=== PATIENT | male | born 1955 | race Caucasian/White ===

== ENCOUNTER 2023-04-10 05:13 | Day surgery (SDC) | payer OTHER, BC ==
[2023-04-08 14:52] VITALS: BMI 25.4
[2023-04-10 10:39] VITALS: TEMP 94
[2023-04-10 11:15] VITALS: BP 117/77; PULSE 55; RESP 12
== END 2023-04-10 11:21 | disposition home or self-care (01) ==
LOC: JASU-ENDO 05:13
PROVIDERS: ATTEND Internal Medicine Gastroenterology
PROC: 0DBN8ZX Excision of Sigmoid Colon, Via Natural or Artificial Opening Endoscopic, Diagnostic (ICD-10-PCS; principal; 2023-04-10 10:30)
DX: Z12.11 Encounter for screening for malignant neoplasm of colon (principal); D12.5 Benign neoplasm of sigmoid colon; K57.30 Diverticulosis of large intestine without perforation or abscess without bleeding; K64.8 Other hemorrhoids; I10 Essential (primary) hypertension

== ENCOUNTER 2023-12-04 08:12 | Day surgery (SDC) | payer OTHER, BC ==
[2023-12-02 12:51] VITALS: BMI 25.8
[2023-12-04] MEDS: TROPICAMIDE 1% OPHTH SOLN 15 ML BOTTLE ONE (08:40)
[2023-12-04] MEDS: CYCLOPENTOLATE 2% OPHTH SOLN 2 ML BOTTLE ONE (08:40)
[2023-12-04] MEDS: CIPROFLOXACIN 0.3% EYE DROPS 5 ML BOTTLE ONE (08:40)
[2023-12-04] MEDS: PHENYLEPHRINE 2.5% OPTHALMIC DROP 2ML BOTTLE ONE (08:40)
[2023-12-04] MEDS ORDERED: BSS (NA/CA/MG/K) BALANCED SALT SOLUTION OPHTH SOLN 15 ML BOTTLE ONE (08:44)
[2023-12-04] MEDS ORDERED: NEO/POLYMYX B SULF/DEXAMETH OPHTHALMIC 5ML BOTTLE ONE (08:44)
[2023-12-04] MEDS ORDERED: TETRACAINE 0.5% OPHTH SOLN 2 ML BOTTLE ONE (08:44)
[2023-12-04] MEDS ORDERED: CARBACHOL 0.01% INTRA-OCULAR 1.5 ML VIAL ONE (08:44)
[2023-12-04] MEDS ORDERED: LIDOCAINE 1% P/F 10 MG/ML VIAL ONE (08:44)
[2023-12-04] MEDS ORDERED: MIDAZOLAM HCL 2 MG/2 ML SINGLE DOSE VIAL ONE (09:43)
[2023-12-04 10:41] VITALS: RESP 19; TEMP 97.8
[2023-12-04 10:44] VITALS: BP 128/71; PULSE 67
== END 2023-12-04 10:40 | disposition home or self-care (01) ==
LOC: FASU 08:12
PROVIDERS: ATTEND Ophthalmology
PROC: 08RJ3JZ Replacement of Right Lens with Synthetic Substitute, Percutaneous Approach (ICD-10-PCS; principal; 2023-12-04 09:53)
DX: H26.8 Other specified cataract (principal)
CPT/HCPCS: 66982; V2632

== ENCOUNTER 2024-01-10 06:43 | Day surgery (SDC) | payer OTHER, BC ==
[2024-01-03 12:58] VITALS: BMI 25.8
[2024-01-10 07:22] VITALS: RESP 18
[2024-01-10] MEDS: CYCLOPENTOLATE 2% OPHTH SOLN 2 ML BOTTLE ONE (07:25)
[2024-01-10] MEDS: PHENYLEPHRINE 2.5% OPTHALMIC DROP 2ML BOTTLE ONE (07:25)
[2024-01-10] MEDS: CIPROFLOXACIN 0.3% EYE DROPS 5 ML BOTTLE ONE (07:25)
[2024-01-10] MEDS: TROPICAMIDE 1% OPHTH SOLN 15 ML BOTTLE ONE (07:25)
[2024-01-10] MEDS ORDERED: MIDAZOLAM HCL 2 MG/2 ML SINGLE DOSE VIAL ONE (08:16)
[2024-01-10] MEDS ORDERED: BSS (NA/CA/MG/K) BALANCED SALT SOLUTION OPHTH SOLN 15 ML BOTTLE ONE (08:55)
[2024-01-10] MEDS ORDERED: LIDOCAINE 1% P/F 10 MG/ML VIAL ONE (08:55)
[2024-01-10] MEDS ORDERED: CARBACHOL 0.01% INTRA-OCULAR 1.5 ML VIAL ONE (08:55)
[2024-01-10] MEDS ORDERED: NEO/POLYMYX B SULF/DEXAMETH OPHTHALMIC 5ML BOTTLE ONE (08:55)
[2024-01-10] MEDS ORDERED: TETRACAINE 0.5% OPHTH SOLN 2 ML BOTTLE ONE (08:55)
[2024-01-10] MEDS ORDERED: EPINEPHrine/PF 1 MG/1 ML (1:1,000) AMPULE ONE (08:56)
[2024-01-10 09:40] VITALS: TEMP 97.2
[2024-01-10 10:06] VITALS: BP 120/74; PULSE 56
== END 2024-01-10 10:05 | disposition home or self-care (01) ==
LOC: FASU 06:43
PROVIDERS: ATTEND Ophthalmology
PROC: 08RK3JZ Replacement of Left Lens with Synthetic Substitute, Percutaneous Approach (ICD-10-PCS; principal; 2024-01-10 09:13)
DX: H26.8 Other specified cataract (principal)
CPT/HCPCS: 66984; V2632